=== PATIENT | male | born 1960 | race Caucasian/White ===

== ENCOUNTER 2017-09-21 10:40 | Emergency (ER) | payer BC ==
[~2017-09-21] VITALS: Ht 182.9 cm; Wt 90.6 kg
[~2017-09-21 10:40] MED LIST: AMLODIPINE BESYL5 MG PO; ASPIR 8181 M1 PO; BUPROPION XL150 MG PO; CYMBALTA60 MG; CYMBALTA60 MG PO; EXCEDRIN MIGRA1 EAC3 PO; IMITREX50 MG PO; LITE COAT ASPI325 M1 PO; LOFIBRA,TRIGLI160 MG PO; METOPROLOL SUC100 MG PO; PERCOCET 7.51 TABLET PO; PRILOSEC20 MG PO; PRISTIQ100 MG PO; PULMICORT FLE180 MCG IH; VENTOLIN HFA18 GM IH; VITAMIN D2000 UNIT PO; WELLBUTRIN XL300 MG PO; WELLBUTRIN75 MG PO; XANAX0.25 MG PO
[2017-09-21 11:27] LABS: HEMATOCRIT 44.1 % (38.0-50.0); HEMOGLOBIN 15.2 G/DL (12.5-16.6); MCH 32.1 PG (29.0-34.0); MCHC 34.5 G/DL (30.0-36.0); PLATELET COUNT 173 K/uL (156-360); RBC DIS.WIDTH-CV 12.3 % (11.8-14.6); RBC DIS.WIDTH-SD 42.5 % (39-53); RED BLOOD COUNT 4.74 M/uL (4.00-5.50); WHITE BLOOD COUNT 5.4 K/uL (4.1-10.2)
[2017-09-21 11:39] LABS: CHLORIDE 101 mEq/L (99-109); POTASSIUM 3.9 mEq/L (3.7-5.4); SODIUM 136 mEq/L (136-147)
[2017-09-21 11:41] LABS: GLUCOSE 136 mg/dL (70-99); TOTAL PROTEIN 6.9 g/dL (6.4-8.3)
[2017-09-21 11:43] LABS: TOTAL BILIRUBIN 0.6 mg/dL (0.0-1.0)
[2017-09-21 11:45] LABS: ALKALINE PHOSPHATASE 79 IU/L (3-129); GFR ESTIMATE (CALCULATED) > 59 mL/min/ (58.99-99999)
[2017-09-21 11:46] LABS: AST (GOT) 37 IU/L (2-34); UREA NITROGEN (BUN) 12 mg/dL (9-23)
[2017-09-21 11:47] LABS: DIRECT BILIRUBIN 0.2 mg/dL (0.0-0.3)
[2017-09-21 11:48] LABS: ALT (GPT) 58 IU/L (3-49); LIPASE 11 U/L (1.0-51.0)
[2017-09-21 12:45] LABS: SOURCE URINE
[2017-09-21 13:14] LABS: APPEARANCE SL.HAZY ((CLEAR)); BILIRUBIN NEGATIVE; BLOOD NEGATIVE; COLOR YELLOW ((YELLOW)); GLUCOSE (STRIP) NEGATIVE; KETONES NEGATIVE; LEUKOCYTES NEGATIVE; NITRITE NEGATIVE; PROTEIN (STRIP) 30; SPECIFIC GRAVITY 1.025 (1.000-1.030); UROBILINOGEN 0.2 MG/DL (0.2-1.0)
[2017-09-21 13:26] LABS: BACTERIA RARE /HPF; EPITHELIAL CELLS NONE SEEN /HPF; HYALINE CASTS 15-20 /LPF; MUCUS 4+ /LPF; RED BLOOD CELLS 0-5 /HPF (0-5); WHITE BLOOD CELLS 0-5 /HPF (0-5)
[2017-09-21] MEDS ORDERED: MOTRIN600 MG PO (15:21)
[2017-09-21] MEDS ORDERED: REGLAN10 MG PO (15:21)
[2017-09-21 15:48] VITALS: BP 135/96
[2017-09-23 13:41] LABS: CHLAMYDIA TRACHOMATIS NEGATIVE; NEISSERIA GONORRHOEAE NEGATIVE
== END 2017-09-21 15:54 | disposition home or self-care (01) ==
LOC: EME 10:40
PROVIDERS: Emergency Medicine
DX: J11.1 Influenza due to unidentified influenza virus with other respiratory manifestations (principal); R10.30 Lower abdominal pain, unspecified; R51 Headache; N50.82 Scrotal pain; F17.200 Nicotine dependence, unspecified, uncomplicated; Z88.6 Allergy status to analgesic agent; Z88.8 Allergy status to other drugs, medicaments and biological substances; J44.9 Chronic obstructive pulmonary disease, unspecified; I10 Essential (primary) hypertension; F32.9 Major depressive disorder, single episode, unspecified; K57.30 Diverticulosis of large intestine without perforation or abscess without bleeding; N40.0 Benign prostatic hyperplasia without lower urinary tract symptoms
CPT/HCPCS: 74177; 76870; 80053; 81003; 82248; 83690; 85027; 87086; 87491; 87591; 93005; 99281; 99285; J1885; J2270; J2405; J7030